=== PATIENT | female | born 1935 | race American Indian/Alaskan Native ===

== ENCOUNTER 2022-07-06 11:08 | Emergency (ER) | payer SELFPAY ==
[2022-07-06 12:33] LABS: Hematocrit 40.8 % (30.3-42.9); Hemoglobin 13.6 gm/dl (10.1-14.3); Mean Corpuscular HGB Conc 33 % (30-34); Mean Corpuscular Volume 101 fl (79-97); Platelet Count 192 K/mm3 (140-440); Red Blood Count 4.03 M/mm3 (3.65-5.03); Red Cell Distribution Width 14.3 % (13.2-15.2)
[2022-07-06 12:56] LABS: Alanine Aminotransferase 19 units/L (7-56); Albumin 4.2 g/dL (3.9-5); Blood Urea Nitrogen 13 mg/dL (7-17); Calcium 9.3 mg/dL (8.4-10.2); Hemolysis Index 7
[2022-07-06 13:03] LABS: BUN/Creatinine Ratio 22
[2022-07-06 17:10] LABS: Color,Urine Dark Yellow (Yellow)
[2022-07-06 17:11] LABS: Bilirubin,Urine Negative (Negative); Blood,Urine Negative (Negative)
[2022-07-06 17:19] LABS: Bacteria,Urine 1+ /HPF (Negative); Mucus,Urine FEW /HPF
[2022-07-06 17:37] LABS: Ictotest,Urine Negative (Negative)
[2022-07-07] MEDS ORDERED: cefTRIAXone/NS 1 GM/50 ML 1 GM/50 ML BAG IV ONE (06:25)
[2022-07-07] MEDS ORDERED: KETOROLAC 30 MG/1 ML INJ IV ONE (06:41)
--- NOTE | 2022-07-07 06:41 | Emergency Department Report ---
ED Abdominal Pain HPI - General Chief Complaint: Abdominal Pain Stated Complaint: ABD/BACK PAIN Time Seen by Provider: 07/07/22 06:08 Source: patient Mode of arrival: Ambulatory Limitations: No Limitations - History of Present Illness Initial Comments: 87-year-old female the past medical history of hypertension, atrial fibrillation on Xarelto, and previous cholecystectomy presents to the hospital with complaints of ongoing suprapubic abdominal pain x1 month. Patient resides in [place] and is in [place] for the past 2 weeks visiting her son. Prior to traveling to [place] she visited the hospital twice and received 2 different antibiotics for UTI. She reports she had "an MRI" and was diagnosed with a bladder infection. Her last antibiotic was Bactrim completed 2 weeks ago. Patient continues to have lower and left lower quadrant abdominal pain radiating to the back that is intermittent and moderate in intensity. Pain exacerbated by palpation. No alleviating factors. Mild intermittent dysuria reported. She denies nausea, vomiting, fever, or diarrhea. Severity scale (0 -10): 8 - Related Data Previous Rx's Medication Instructions Recorded Last Taken Type Acetaminophen [Tylenol] 500 mg PO Q4HR PRN #20 tablet 07/07/22 Unknown Rx cefUROXime [Ceftin] 500 mg PO Q12H 7 Days 07/07/22 Unknown Rx polyethylene glycoL 3350 [Miralax 17 gm PO QDAY PRN #7 packet 07/07/22 Unknown Rx 3350] Allergies Allergy/AdvReac Type Severity Reaction Status Date / Time Penicillins Allergy Unknown Verified 07/07/22 06:11 ED Review of Systems ROS: Stated complaint: ABD/BACK PAIN Other details as noted in HPI Comment: All other systems reviewed and negative ED Past Medical Hx - Past Medical History Hx Hypertension: Yes Additional medical history: A.Fib - Surgical History Hx Cholecystectomy: Yes - Social History Smoking Status: Never Smoker - Medications Home Medications: Home Medications Medication Instructions Recorded Confirmed Last Taken Type Acetaminophen [Tylenol] 500 mg PO Q4HR PRN #20 tablet 07/07/22 Unknown Rx cefUROXime [Ceftin] 500 mg PO Q12H 7 Days 07/07/22 Unknown Rx polyethylene glycoL 3350 [Miralax 17 gm PO QDAY PRN #7 packet 07/07/22 Unknown Rx 3350] ED Physical Exam - General Limitations: No Limitations - Other Other exam information: General: No acute distress Head: Atraumatic Eyes: normal appearance ENT: Moist mucous membranes Neck: Normal appearance, no midline tenderness Chest: Clear to auscultation bilaterally CV: Regular rate and rhythm Abdomen: Soft, normal bowel sounds, mild left lower quadrant tenderness to palpation no rebound or guarding Back: Normal inspection, mild left lower lumbar tenderness. No significant pain with sitting up in the bed Extremity: Normal inspection, full range of motion Neuro: Alert O x 3, no facial asymmetry, speech clear, no gross motor sensory deficit Psych: Appropriate behavior Skin: No rash ED Course Vital Signs 07/06/22 07/06/22 07/06/22 11:18 15:17 21:27 Temperature 98.9 F 98.3 F Pulse Rate 86 86 88 Respiratory 22 15 18 Rate Blood Pressure 157/85 Blood Pressure 158/68 144/64 [Right] O2 Sat by Pulse 98 99 95 Oximetry 07/07/22 08:08 Temperature 98.4 F Pulse Rate 91 H Respiratory 20 Rate Blood Pressure Blood Pressure 143/66 [Right] O2 Sat by Pulse 97 Oximetry ED Medical Decision Making - Lab Data Result diagrams: 07/06/22 11:39 07/06/22 11:39 Lab Results 07/06/22 07/06/22 07/06/22 Range/Units 11:39 11:39 15:27 WBC 5.7 (4.5-11.0) K/mm3 RBC 4.03 (3.65-5.03) M/mm3 Hgb 13.6 (10.1-14.3) gm/dl Hct 40.8 (30.3-42.9) % MCV 101 H (79-97) fl MCH 34 H (28-32) pg MCHC 33 (30-34) % RDW 14.3 (13.2-15.2) % Plt Count 192 (140-440) K/mm3 Sodium 142 (137-145) mmol/L Potassium 3.7 (3.6-5.0) mmol/L Chloride 103.6 (98-107) mmol/L Carbon Dioxide 27 (22-30) mmol/L Anion Gap 15 mmol/L BUN 13 (7-17) mg/dL Creatinine 0.6 (0.6-1.2) mg/dL Estimated GFR > 60 ml/min BUN/Creatinine Ratio 22 % Glucose 136 H (65-100) mg/dL Calcium 9.3 (8.4-10.2) mg/dL Total Bilirubin 0.70 (0.1-1.2) mg/dL AST 24 (5-40) units/L ALT 19 (7-56) units/L Alkaline Phosphatase 70 (35-129) units/L Total Protein 7.7 (6.3-8.2) g/dL Albumin 4.2 (3.9-5) g/dL Albumin/Globulin Ratio 1.2 % Urine Color Dark yellow (Yellow) Urine Turbidity Clear (Clear) Urine pH 6.0 (5.0-7.0) Ur Specific [place] 1.030 (1.003-1.030) Urine Protein 30 mg/dl (Negative) mg/dL Urine Glucose (UA) Negative (Negative) mg/dL Urine Ketones Negative (Negative) mg/dL Urine Blood Negative (Negative) Urine Nitrite Negative (Negative) Urine Bilirubin Negative (Negative) Urine Ictotest Negative (Negative) Urine Urobilinogen 0.0 (<2.0) mg/dL Ur Leukocyte Esterase 1+ (Negative) Urine WBC (Auto) 8.0 H (0.0-6.0) /HPF Urine RBC (Auto) 42.0 (0.0-6.0) /HPF U Epithel Cells (Auto) 27.0 H (0-13.0) /HPF Urine Bacteria (Auto) 1+ (Negative) /HPF Urine Mucus Few /HPF - Radiology Data Radiology results: report reviewed CT abdomen pelvis w con INDICATION / CLINICAL INFORMATION: Persistent lower abdominal pain. TECHNIQUE: Axial CT images were obtained through the abdomen and pelvis after 100 cc of Omnipaque [address] scans at this location are performed using CT dose reduction for ALARA by means of automated exposure control. COMPARISON: None available. FINDINGS: LOWER CHEST: Cardiomegaly. No pericardial effusion. Lung bases are clear. LIVER: No significant abnormality GALLBLADDER/BILIARY TREE: Cholecystectomy. PANCREAS: No significant abnormality SPLEEN: No significant abnormality ADRENALS: No significant abnormality RIGHT KIDNEY / URETER: Mild cortical scarring of the lower pole of the right kidney. No acute findings. No urolithiasis or hydronephrosis. LEFT KIDNEY / URETER: Mild cortical scarring of the lower pole. No evidence of acute process. No hydronephrosis. URINARY BLADDER: Bladder is partially decompressed, though grossly unremarkable. REPRODUCTIVE ORGANS: Nonspecific endometrial fluid/thickening, measuring 1.4 cm. No suspicious adnexal mass. STOMACH / BOWEL: Small bowel is normal in caliber. Moderate to large colonic stool burden. No evidence of localized inflammation. The appendix is normal in caliber. LYMPH NODES: No significant adenopathy. VASCULATURE: Moderate atherosclerotic calcification without acute abnormality. OTHER: No free air, free fluid, or focal fluid collection is identified. SKELETAL SYSTEM: Degenerative changes of the spine. No acute osseous findings. IMPRESSION: 1. No acute findings of the abdomen or pelvis. 2. Moderate-large colonic stool burden, consistent with constipation. No evidence of localized bowel inflammation. 3. Nonspecific endometrial fluid/thickening. Recommend correlation with pelvic ultrasound. 4. Mild renal cortical scarring without evidence of acute process. - Medical Decision Making 87-year-old female with ongoing lower abdominal pain and urinary symptoms. UA reveals UTI versus contaminated sample given high number of epithelial cells. No signs of leukocytosis, fever, or sepsis. Pain is mild on examination. CT abdomen and pelvis shows signs of constipation without other acute significant findings. Patient treated with Rocephin in the ED without allergic reaction be discharged on cephalosporin and MiraLAX. Prior to discharge I spoke to patient's son. It appears she has been prescribed Dulcolax and MiraLAX recently. Patient also has a large bottle of Tylenol 500 mg prescribed by her doctor. I informed him that she may have a mild UTI versus contamination and additional antibiotic will be provided. I encouraged him to ensure patient is taking her stool softeners to assist with bowel movements. She does endorse constipation symptoms Critical Care Time: No Critical care attestation.: If time is entered above; I have spent that time in minutes in the direct care of this critically ill patient, excluding procedure time. ED Disposition Clinical Impression: Constipation, UTI (urinary tract infection) Disposition: HOME / SELF CARE / HOMELESS Is pt being admited?: No Does the pt Need Aspirin: No Condition: Stable Instructions: Abdominal Pain (ED), Constipation, Adult, [id number], Urinary Tract Infection, Adult Additional Instructions: Take the medication as prescribed. Follow-up with your doctor or doctor/clinic provided. Return if symptoms worsen as indicated by your discharge instructions. Prescriptions: Acetaminophen [Tylenol] 500 mg PO Q4HR PRN #20 tablet PRN Reason: Pain , Severe (7-10) cefUROXime [Ceftin] 500 mg PO Q12H 7 Days polyethylene glycoL 3350 [Miralax 3350] 17 gm PO QDAY PRN #7 packet PRN Reason: Constipation Referrals: [facility] [Provider Group] - 3-5 Days JEROME ROMERO MD [Staff Physician] - 3-5 Days Time of Disposition: 08:17
--- NOTE | 2022-07-07 07:54 | Cat Scan Report ---
CT abdomen pelvis w con INDICATION / CLINICAL INFORMATION: Persistent lower abdominal pain. TECHNIQUE: Axial CT images were obtained through the abdomen and pelvis after 100 cc of Omnipaque [address] scans at this location are performed using CT dose reduction for ALARA by means of automated exposure control. COMPARISON: None available. FINDINGS: LOWER CHEST: Cardiomegaly. No pericardial effusion. Lung bases are clear. LIVER: No significant abnormality GALLBLADDER/BILIARY TREE: Cholecystectomy. PANCREAS: No significant abnormality SPLEEN: No significant abnormality ADRENALS: No significant abnormality RIGHT KIDNEY / URETER: Mild cortical scarring of the lower pole of the right kidney. No acute finding s. No urolithiasis or hydronephrosis. LEFT KIDNEY / URETER: Mild cortical scarring of the lower pole. No evidence of acute process. No hydr onephrosis. URINARY BLADDER: Bladder is partially decompressed, though grossly unremarkable. REPRODUCTIVE ORGANS: Nonspecific endometrial fluid/thickening, measuring 1.4 cm. No suspicious adnexa l mass. STOMACH / BOWEL: Small bowel is normal in caliber. Moderate to large colonic stool burden. No evidenc e of localized inflammation. The appendix is normal in caliber. LYMPH NODES: No significant adenopathy. VASCULATURE: Moderate atherosclerotic calcification without acute abnormality. OTHER: No free air, free fluid, or focal fluid collection is identified. SKELETAL SYSTEM: Degenerative changes of the spine. No acute osseous findings. IMPRESSION: 1. No acute findings of the abdomen or pelvis. 2. Moderate-large colonic stool burden, consistent with constipation. No evidence of localized bowel inflammation. 3. Nonspecific endometrial fluid/thickening. Recommend correlation with pelvic ultrasound. 4. Mild renal cortical scarring without evidence of acute process. Signer Name: Griffin Ortega MD Signed: 07/07/2022 7:50 AM Workstation Name: [id number]
[2022-07-07 08:09] VITALS: BP 143/66
== END 2022-07-07 09:14 | disposition home or self-care (01) ==
LOC: ED 11:08
DX: N39.0 Urinary tract infection, site not specified (principal); K59.00 Constipation, unspecified; I10 Essential (primary) hypertension; Z90.49 Acquired absence of other specified parts of digestive tract; Z88.0 Allergy status to penicillin
CPT/HCPCS: 36415; 74177; 80053; 81001; 85027; 96365; 96375; 99284; J0696; J1885; Q9967